=== PATIENT | male | born 1970 | race Caucasian/White ===

== ENCOUNTER 2016-11-06 22:00 | Emergency (ER) | payer SELFPAY ==
[2016-11-06 22:12] VITALS: RESP 18
--- NOTE | 2016-11-06 23:36 | C.PDOC ---
History Of Present Illness 46 year old male who presents to the ER for a complaint of a 1 week Hx of an intermittent sensation of having something stuck in his throat; associated with bilateral ear pain. Patient denies eating anything with small bones, throat pain , fever, or chills. Time Seen by Provider: 11/06/16 22:29 Chief Complaint (Nursing): ENT Problem History Per: Patient History/Exam Limitations: None Onset/Duration Of Symptoms: Days, Intermittent Episodes Current Symptoms Are (Timing): Still Present Symptoms Have Been: Episodic Anticoagulant/Antiplatlet Use?: Unknown Recent Aspirin Use: Unknown Past Medical History Reviewed: Historical Data, Nursing Documentation, Vital Signs Vital Signs: Last Vital Signs Temp 98.0 F 11/06/16 23:47 Pulse 81 11/06/16 23:47 Resp 18 11/06/16 23:47 BP 138/84 11/06/16 23:47 Pulse Ox 98 11/06/16 23:47 - Medical History PMH: Hypercholesterolemia Surgical History: No Surg Hx Family History: States: Unknown Family Hx - Social History Hx Alcohol Use: No Hx Substance Use: No - Immunization History Hx Tetanus Toxoid Vaccination: Yes Hx Influenza Vaccination: Yes Hx Pneumococcal Vaccination: No Review Of Systems Constitutional: Negative for: Fever, Chills ENT: Positive for: Ear Pain, Other (Throat discomfort). Negative for: Ear Discharge Physical Exam - Physical Exam Appears: Non-toxic Skin: Normal Color, Warm, Dry Head: Atraumatic, Normacephalic Ear(s): Bilateral: TM Dull (No erythema. No mastoid tenderness.) Oral Mucosa: Moist Throat: Erythema, Other (Tonsillar enlargement) Neck: Normal, Supple, No Other (Tracheal tenderness) Chest: Symmetrical, No Tenderness Cardiovascular: Rhythm Regular, No Murmur Respiratory: Normal Breath Sounds, No Rales, No Rhonchi, No Wheezing Gastrointestinal/Abdominal: Soft, No Tenderness Neurological/Psych: Oriented x3, Normal Speech, Normal Cognition ED Course And Treatment O2 Sat by Pulse Oximetry: 97 (Room air) Pulse Ox Interpretation: Normal Medical Decision Making Medical Decision Making: Rapid strep was negative, will discharge home with instruction to follow up with ENT. Disposition Counseled Patient/Family Regarding: Studies Performed, Diagnosis - Disposition Referrals: Bao Rebollar MD [Staff Provider] - Kathe Welch MD [Medical Doctor] - Disposition: HOME/ ROUTINE Disposition Time: 23:37 Condition: STABLE Additional Instructions: Gargle with warm salty water several times a day. Take Tylenol or Motrin for pain. Follow up with your pmd and ENT doctor- Dr Rebollar. Return to ER for any worsening symptoms., Forms: [facility] (Italian), General Discharge Instructions Print Language: IRAQI - Clinical Impression Clinical Impression: Ear pain, Throat discomfort - Scribe Statement The provider has reviewed the documentation as recorded by the [facility] [place] All medical record entries made by the [facility] were at my direction and personally dictated by me. I have reviewed the chart and agree that the record accurately reflects my personal performance of the history, physical exam, medical decision making, and the department course for this patient. I have also personally directed, reviewed, and agree with the discharge instructions and disposition.
[2016-11-06 23:47] VITALS: BP 138/84; PULSE 81; TEMP 98
[2016-11-07 05:06] VITALS: O2SAT 97
== END 2016-11-06 23:47 | disposition home or self-care (01) ==
LOC: C.ER 22:00
DX: H92.03 Otalgia, bilateral (principal); R07.0 Pain in throat